=== PATIENT | female | born 1945 | race Asian ===

== ENCOUNTER → 2024-07-05 | Outpatient (CLI) | payer MEDICARE, SELFPAY ==
[2024-07-05 10:33] LABS: Basophils % (Auto) 1 % (0-2.5); Eosinophils # (Auto) 0.3 Thou/mm3 (0.0-0.5); Eosinophils % (Auto) 7 % (0-10); Hematocrit 38.8 % (36.0-46.0); Hemoglobin 12.4 g/dL (12.0-16.0); Immature Granulocytes % (Auto) 0 % (0-0); Immature Granulocytes Auto 0.01 Thou/mm3 (0.00-0.00); Lymphocytes # (Auto) 1.6 Thou/mm3 (1.0-4.8); Lymphocytes % (Auto) 39 % (10-50); Mean Corpuscular Hemoglobin 29.8 pg (25.0-35.0); Mean Corpuscular Volume 93 fL (80-100); Monocytes # (Auto) 0.2 Thou/mm3 (0.0-0.8); Monocytes % (Auto) 5 % (0-12); Neutrophils % (Auto) 49 % (37-80); Nucleated Red Blood Cell % 0 /100 WBC (0); Platelet Count 207 Thou/mm3 (140-440); RDW Standard Deviation 41.7 fL (36.4-46.3); Red Blood Count 4.16 Miln/mm3 (4.00-5.20); White Blood Count 4.2 Thou/mm3 (3.6-11.0)
[2024-07-05 10:47] LABS: Glucose Estimated Average 128 mg/dL (80-131); Hemoglobin A1C 6.1 % Hgb (4.8-6.0)
[2024-07-05 10:52] LABS: Collection Type, Urine Clean Catch
[2024-07-05 11:04] LABS: Vitamin B12 653 pg/mL (211-911); Vitamin D 25 Hydroxy Total 41.4 ng/mL (7.3-40.2)
[2024-07-05 11:05] LABS: Alanine Aminotransferase 15 U/L (10-49); Albumin, Serum 4.2 gm/dL (3.4-4.8); Albumin/Globulin Ratio 1.8 (1.2-2.2); Alkaline Phosphatase 87 U/L (46-116); Anion Gap 11 (7-16); Aspartate Amino Transferase 25 U/L (0-34); BUN/Creatinine Ratio 22 Ratio (12-20); Bilirubin,Total 0.6 mg/dL (0.3-1.2); Blood Urea Nitrogen 28 mg/dL (9-23); Carbon Dioxide 19.1 mMol/L (20.0-31.0); Cardiac Risk Estimate 2.2 RATIO (3.7-5.6); Chloride 109 mMol/L (98-107); Cholesterol 122 mg/dL (132-200); Creatinine (Component) 1.3 mg/dL (0.6-1.3); Globulin 2.4 gm/dL (2.3-3.5); Glucose 122 mg/dL (74-106); HDL Cholesterol 55 mg/dL (40-60); LDL Cholesterol,Calculated 46 mg/dL (0-130); Osmolality,Calculated 284 (275-295); Potassium 4.4 mMol/L (3.4-5.1); Sodium 139 mMol/L (136-145); Thyroid Stimulating Hormone 2.21 uIU/mL (0.55-4.78); Total Protein 6.6 gm/dL (5.7-8.2); Triglycerides 104 mg/dL (30-150); Uric Acid 5.8 mg/dL (3.1-7.8); eGFR 42 See Note
[2024-07-05 11:33] LABS: Creatinine MALB Rnd Ur 90 mg/dL (30-125); Microalbumin Creat Ratio 103 mg/gCrea (<30); Microalbumin, Random Urine 93 mg/L (0-300)
[2024-07-05 11:41] LABS: Bacteria,Urine 2+; Bilirubin,Urine Negative (Negative); Blood,Urine Negative (Negative); Clarity,Urine Clear (Clear/Hazy); Color,Urine Lt-Yellow (Lt Yel-Yel); Glucose, Urine Negative (Negative); Ketones,Urine Negative (Negative); Leukocyte Esterase,Urine Positive (Negative); Nitrite,Urine Positive (Negative); Protein,Urine 1+ (Neg - Trace); RBC,Urine 4 /hpf (0-3); Specific Gravity,Urine 1.016 (1.001-1.035); Squamous Epithelial Cell,Urine 1 /hpf (0-5); Urobilinogen,Urine Negative mg/dL (0.0-1.0); WBC,Urine 70 /hpf (0-5)
== END | disposition home or self-care (01) ==
LOC: COPL 09:41
PROVIDERS: PCP Internal Medicine; Referring Provider Internal Medicine; Visit Provider Internal Medicine
DX: E11.9 Type 2 diabetes mellitus without complications (principal); I10 Essential (primary) hypertension; E78.5 Hyperlipidemia, unspecified
CPT/HCPCS: 36415; 80053; 80061; 81001; 82043; 82306; 82570; 82607; 83036; 84443; 84550; 85025

== ENCOUNTER → 2024-10-20 | Outpatient (CLI) | payer MEDICARE, SELFPAY ==
[2024-10-20 09:01] LABS: Collection Type, Urine Clean Catch
[2024-10-20 09:46] LABS: Parathyroid Hormone Intact 52.6 pg/ml (18.5-88.0)
[2024-10-20 09:56] LABS: Glucose Estimated Average 123 mg/dL (80-131); Hemoglobin A1C 5.9 % Hgb (4.8-6.0)
[2024-10-20 09:57] LABS: Bacteria,Urine Rare; Bilirubin,Urine Negative (Negative); Blood,Urine Negative (Negative); Clarity,Urine Clear (Clear/Hazy); Color,Urine Lt-Yellow (Lt Yel-Yel); Glucose, Urine Negative (Negative); Ketones,Urine Negative (Negative); Leukocyte Esterase,Urine Positive (Negative); Nitrite,Urine Negative (Negative); PH,Urine 5.5 (5.0-7.0); Protein,Urine Trace (Neg - Trace); RBC,Urine 2 /hpf (0-3); Specific Gravity,Urine 1.015 (1.001-1.035); Squamous Epithelial Cell,Urine < 1 /hpf (0-5); Urobilinogen,Urine Negative mg/dL (0.0-1.0); WBC,Urine 54 /hpf (0-5)
[2024-10-20 09:59] LABS: Alanine Aminotransferase < 7 U/L (10-49); Albumin, Serum 4.5 gm/dL (3.4-4.8); Albumin/Globulin Ratio 1.7 (1.2-2.2); Alkaline Phosphatase 90 U/L (46-116); Anion Gap 10 (7-16); Aspartate Amino Transferase 20 U/L (0-34); BUN/Creatinine Ratio 18 Ratio (12-20); Bilirubin,Total 0.9 mg/dL (0.3-1.2); Blood Urea Nitrogen 28 mg/dL (9-23); Calcium 9.3 mg/dL (8.3-10.6); Calcium (Corrected) 9.3 mg/dL (8.5-10.1); Carbon Dioxide 22.8 mMol/L (20.0-31.0); Cardiac Risk Estimate 2.5 RATIO (3.7-5.6); Chloride 107 mMol/L (98-107); Cholesterol 138 mg/dL (132-200); Creatinine (Component) 1.6 mg/dL (0.6-1.3); Globulin 2.6 gm/dL (2.3-3.5); Glucose 123 mg/dL (74-106); HDL Cholesterol 56 mg/dL (40-60); LDL Cholesterol,Calculated 53 mg/dL (0-130); Osmolality,Calculated 285 (275-295); Potassium 4.8 mMol/L (3.4-5.1); Sodium 140 mMol/L (136-145); Total Protein 7.1 gm/dL (5.7-8.2); Triglycerides 145 mg/dL (30-150); eGFR 33 See Note
== END | disposition home or self-care (01) ==
LOC: COPL 08:41
PROVIDERS: PCP Internal Medicine; Referring Provider Internal Medicine; Visit Provider Internal Medicine
DX: I12.9 Hypertensive chronic kidney disease with stage 1 through stage 4 chronic kidney disease, or unspecified chronic kidney disease (principal); E11.22 Type 2 diabetes mellitus with diabetic chronic kidney disease; N18.30 Chronic kidney disease, stage 3 unspecified; E78.5 Hyperlipidemia, unspecified
CPT/HCPCS: 36415; 80053; 80061; 81001; 83036; 83970

== ENCOUNTER → 2025-01-04 | Outpatient (CLI) | payer MEDICARE, SELFPAY ==
--- NOTE | 2025-01-04 16:01 | XR_ITS ---
Examination: Retroperitoneal ultrasound, complete Technique: Multiple high resolution grayscale images of the retroperitoneum obtained, including kidneys and bladder. Exam date and time:January 04, 2025 1631 hours INDICATIONS: Renal insufficiency on laboratory examination this week FINDINGS: Right kidney 11.2 cm renal cortex 1.4 cm Mild right hydronephrosis Midpole 7 mm right renal calculus Left kidney 10.6 cm renal cortex 1.1 cm Upper pole cyst 12 mm Midpole left renal calculus 6 mm, midpole calculus 4 mm Bladder prevoid volume 339.91 cc No bladder mass IMPRESSION: Bilateral renal cortical thinning Moderate bilateral renal parenchyma scar formation Bilateral renal calculi Mild right hydronephrosis
[2025-01-04 16:57] LABS: Collection Type, Urine Clean Catch
[2025-01-04 17:45] LABS: Creatinine MALB Rnd Ur 21 mg/dL (30-125); Microalbumin Creat Ratio 171 mg/gCrea (<30); Microalbumin, Random Urine 36 mg/L (0-300)
[2025-01-04 17:46] LABS: Albumin, Serum 4.4 gm/dL (3.4-4.8); Anion Gap 12 (7-16); BUN/Creatinine Ratio 16 Ratio (12-20); Blood Urea Nitrogen 27 mg/dL (9-23); Calcium 9.2 mg/dL (8.3-10.6); Calcium (Corrected) 9.2 mg/dL (8.5-10.1); Carbon Dioxide 22.3 mMol/L (20.0-31.0); Chloride 103 mMol/L (98-107); Creatinine (Component) 1.7 mg/dL (0.6-1.3); Glucose 141 mg/dL (74-106); Osmolality,Calculated 280 (275-295); Phosphorous 3.5 mg/dL (2.4-5.1); Potassium 4.1 mMol/L (3.4-5.1); Sodium 137 mMol/L (136-145); eGFR 31 See Note
[2025-01-04 17:48] LABS: Bacteria,Urine Rare; Bilirubin,Urine Negative (Negative); Blood,Urine Negative (Negative); Clarity,Urine Clear (Clear/Hazy); Color,Urine Colorless (Lt Yel-Yel); Glucose, Urine Negative (Negative); Ketones,Urine Negative (Negative); Leukocyte Esterase,Urine Positive (Negative); Nitrite,Urine Negative (Negative); PH,Urine 6.0 (5.0-7.0); Protein,Urine Negative (Neg - Trace); RBC,Urine 2 /hpf (0-3); Specific Gravity,Urine 1.006 (1.001-1.035); Squamous Epithelial Cell,Urine < 1 /hpf (0-5); Urobilinogen,Urine Negative mg/dL (0.0-1.0); WBC,Urine 23 /hpf (0-5)
== END | disposition home or self-care (01) ==
LOC: CDIM 15:52 → COPL 16:49
PROVIDERS: Referring Provider Internal Medicine; Visit Provider Radiology Diagnostic Radiology
DX: N28.89 Other specified disorders of kidney and ureter (principal); N13.2 Hydronephrosis with renal and ureteral calculous obstruction; N17.9 Acute kidney failure, unspecified; I10 Essential (primary) hypertension
CPT/HCPCS: 36415; 76770; 80069; 81001; 82043; 82570

== ENCOUNTER → 2025-01-26 | Outpatient (CLI) | payer MEDICARE, SELFPAY ==
[2025-01-26 12:20] LABS: Parathyroid Hormone Intact 87.8 pg/ml (18.5-88.0)
[2025-01-26 12:24] LABS: Vitamin D 25 Hydroxy Total 33.2 ng/mL (7.3-40.2)
[2025-01-26 12:49] LABS: Albumin, Serum 4.4 gm/dL (3.4-4.8); Anion Gap 10 (7-16); BUN/Creatinine Ratio 23 Ratio (12-20); Blood Urea Nitrogen 32 mg/dL (9-23); Calcium 10.1 mg/dL (8.3-10.6); Calcium (Corrected) 10.1 mg/dL (8.5-10.1); Carbon Dioxide 23.3 mMol/L (20.0-31.0); Chloride 110 mMol/L (98-107); Creatinine (Component) 1.4 mg/dL (0.6-1.3); Glucose 113 mg/dL (74-106); Osmolality,Calculated 292 (275-295); Phosphorous 3.5 mg/dL (2.4-5.1); Potassium 4.8 mMol/L (3.4-5.1); Sodium 143 mMol/L (136-145); eGFR 39 See Note
[2025-01-26 12:58] LABS: Collection Type, Urine Clean Catch
[2025-01-26 12:58] LABS: Uric Acid 3.9 mg/dL (3.1-7.8)
[2025-01-26 13:26] LABS: Bacteria,Urine 3+; Bilirubin,Urine Negative (Negative); Blood,Urine Negative (Negative); Clarity,Urine Clear (Clear/Hazy); Color,Urine Lt-Yellow (Lt Yel-Yel); Glucose, Urine Negative (Negative); Ketones,Urine Negative (Negative); Leukocyte Esterase,Urine Positive (Negative); Nitrite,Urine Negative (Negative); PH,Urine 5.5 (5.0-7.0); Protein,Urine Negative (Neg - Trace); RBC,Urine 2 /hpf (0-3); Specific Gravity,Urine 1.015 (1.001-1.035); Squamous Epithelial Cell,Urine < 1 /hpf (0-5); Urobilinogen,Urine Negative mg/dL (0.0-1.0); WBC,Urine 27 /hpf (0-5)
== END | disposition home or self-care (01) ==
LOC: COPL 11:36
PROVIDERS: PCP Internal Medicine; Referring Provider Internal Medicine; Visit Provider Internal Medicine
DX: N20.0 Calculus of kidney (principal)
CPT/HCPCS: 36415; 80069; 81001; 82306; 83970; 84550

== ENCOUNTER → 2025-02-18 | Outpatient (CLI) | payer MEDICARE, SELFPAY ==
[2025-02-18 10:23] LABS: Misc Send Out* See Sep Rpt
== END | disposition home or self-care (01) ==
LOC: SLDO 10:17
PROVIDERS: Referring Provider Internal Medicine; Visit Provider Internal Medicine
DX: N20.0 Calculus of kidney (principal)
CPT/HCPCS: 82340; 82507; 82570; 83735; 83945; 83986; 84105; 84133; 84300; 84392; 84560

== ENCOUNTER → 2025-03-22 | Outpatient (CLI) | payer MEDICARE, SELFPAY ==
[2025-03-22 09:49] LABS: Basophils # (Auto) 0.1 Thou/mm3 (0.0-0.2); Basophils % (Auto) 1 % (0-2.5); Eosinophils # (Auto) 0.3 Thou/mm3 (0.0-0.5); Eosinophils % (Auto) 5 % (0-10); Hematocrit 38.1 % (36.0-46.0); Hemoglobin 12.2 g/dL (12.0-16.0); Immature Granulocytes Auto 0.02 Thou/mm3 (0.00-0.00); Lymphocytes # (Auto) 1.8 Thou/mm3 (1.0-4.8); Lymphocytes % (Auto) 32 % (10-50); Mean Corpuscular HGB Conc 32.0 g/dl (31.0-37.0); Mean Corpuscular Hemoglobin 30.7 pg (25.0-35.0); Mean Corpuscular Volume 96 fL (80-100); Monocytes # (Auto) 0.4 Thou/mm3 (0.0-0.8); Monocytes % (Auto) 7 % (0-12); Neutrophils # (Auto) 3.1 Thou/mm3 (1.8-7.7); Neutrophils % (Auto) 55 % (37-80); Nucleated Red Blood Cell # 0.00 Thou/mm3 (0.00-0.00); Nucleated Red Blood Cell % 0 /100 WBC (0); Platelet Count 220 Thou/mm3 (140-440); RDW Standard Deviation 45.0 fL (36.4-46.3); Red Blood Count 3.97 Miln/mm3 (4.00-5.20); White Blood Count 5.8 Thou/mm3 (3.6-11.0)
[2025-03-22 10:03] LABS: Glucose Estimated Average 126 mg/dL (80-131); Hemoglobin A1C 6.0 % Hgb (4.8-6.0)
[2025-03-22 10:12] LABS: Parathyroid Hormone Intact 96.6 pg/ml (18.5-88.0)
[2025-03-22 10:17] LABS: Collection Type, Urine Clean Catch
[2025-03-22 10:25] LABS: Alanine Aminotransferase 9 U/L (10-49); Albumin, Serum 4.7 gm/dL (3.4-4.8); Albumin/Globulin Ratio 2.2 (1.2-2.2); Alkaline Phosphatase 82 U/L (46-116); Anion Gap 10 (7-16); Aspartate Amino Transferase 24 U/L (0-34); BUN/Creatinine Ratio 17 Ratio (12-20); Bilirubin,Total 0.9 mg/dL (0.3-1.2); Blood Urea Nitrogen 22 mg/dL (9-23); Calcium 9.3 mg/dL (8.3-10.6); Calcium (Corrected) 9.3 mg/dL (8.5-10.1); Carbon Dioxide 22.6 mMol/L (20.0-31.0); Cardiac Risk Estimate 2.1 RATIO (3.7-5.6); Chloride 108 mMol/L (98-107); Cholesterol 122 mg/dL (132-200); Creatinine (Component) 1.3 mg/dL (0.6-1.3); Globulin 2.1 gm/dL (2.3-3.5); Glucose 128 mg/dL (74-106); HDL Cholesterol 59 mg/dL (40-60); LDL Cholesterol,Calculated 45 mg/dL (0-130); Osmolality,Calculated 286 (275-295); Potassium 4.8 mMol/L (3.4-5.1); Sodium 141 mMol/L (136-145); Thyroid Stimulating Hormone 1.94 uIU/mL (0.55-4.78); Total Protein 6.8 gm/dL (5.7-8.2); Triglycerides 89 mg/dL (30-150); Uric Acid 3.5 mg/dL (3.1-7.8); eGFR 42 See Note
[2025-03-22 10:48] LABS: Bacteria,Urine 1+; Bilirubin,Urine Negative (Negative); Blood,Urine Negative (Negative); Clarity,Urine Clear (Clear/Hazy); Color,Urine Colorless (Lt Yel-Yel); Glucose, Urine Negative (Negative); Ketones,Urine Negative (Negative); Leukocyte Esterase,Urine Positive (Negative); Nitrite,Urine Negative (Negative); PH,Urine 6.0 (5.0-7.0); Protein,Urine Trace (Neg - Trace); RBC,Urine 1 /hpf (0-3); Specific Gravity,Urine 1.011 (1.001-1.035); Squamous Epithelial Cell,Urine 1 /hpf (0-5); Urobilinogen,Urine Negative mg/dL (0.0-1.0); WBC,Urine 18 /hpf (0-5)
== END | disposition home or self-care (01) ==
LOC: COPL 09:07
PROVIDERS: PCP Internal Medicine; Referring Provider Internal Medicine; Visit Provider Internal Medicine
DX: I12.9 Hypertensive chronic kidney disease with stage 1 through stage 4 chronic kidney disease, or unspecified chronic kidney disease (principal); E11.22 Type 2 diabetes mellitus with diabetic chronic kidney disease; N18.30 Chronic kidney disease, stage 3 unspecified; E78.5 Hyperlipidemia, unspecified
CPT/HCPCS: 36415; 80053; 80061; 81001; 83036; 83970; 84443; 84550; 85025

== ENCOUNTER → 2025-03-23 | Outpatient (CLI) | payer MEDICARE, SELFPAY ==
--- NOTE | 2025-03-23 16:30 | XR_ITS ---
Examination: CT abdomen and pelvis without contrast. Coronal 3-D reconstructions. Sagittal 2-D reconstructions. Date and time of exam: March 23, 2025, 1601 hours INDICATIONS: Left flank pain beginning 2 months ago COMPARISON: 02/12/2022 CTDI: vol (mGy): 6.01 DLP: (mGycm): 304 Technique: Axial images of the abdomen have been obtained, 3 mm slice thickness Intravenous contrast material has not been administered. Low dose protocols were performed. One or more of the following dose reduction techniques were used; automated exposure control, adjustment of the mA and/or KV according to patient size, use of iterative reconstruction technique. Findings: No focal liver or splenic lesions No gallstones No pancreatic or adrenal mass Atrophic left kidney with severe scarring No renal or ureteral calculi, no hydronephrosis Aortic calcification no aneurysmal dilatation. Normal appendix. Tiny fat-containing umbilical hernia. 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
== END | disposition home or self-care (01) ==
PROVIDERS: Referring Provider Internal Medicine; Visit Provider Internal Medicine
DX: N26.1 Atrophy of kidney (terminal) (principal); N28.89 Other specified disorders of kidney and ureter
CPT/HCPCS: 74176